=== PATIENT | female | born 1940 | race Caucasian/White ===

== ENCOUNTER 2020-09-11 00:15 | Inpatient (IN) | payer MEDICARE ==
[~2020-09-11] VITALS: Ht 165.1 cm; Wt 86.4 kg
[2020-09-11] MEDS ORDERED: Vitamin D2000 UNIT PO (00:36)
[2020-09-11] MEDS ORDERED: Aldactone50 MG PO (00:36)
[2020-09-11] MEDS ORDERED: XARELTO20 MG PO (00:36)
[2020-09-11] MEDS ORDERED: AMLO5 PO (00:37)
[2020-09-11] MEDS ORDERED: LANOXIN125 MCG PO (00:37)
[2020-09-11] MEDS ORDERED: PARO20 PO (00:37)
[2020-09-11] MEDS ORDERED: LOVA40 PO (00:37)
[2020-09-11] MEDS ORDERED: METO25ER PO (00:38)
[2020-09-11] MEDS ORDERED: Prinivil10 MG PO (00:38)
[2020-09-11] MEDS ORDERED: ALBU90OI INH (00:38)
[2020-09-11 00:48] LABS: BASOPHILS ABSOLUTE AUTO 0.06 K/mm3 (0.00-0.23); BASOPHILS PERCENT AUTO 1 % (0-2); EOSINOPHILS ABSOLUTE AUTO 0.02 K/mm3 (0.00-0.68); EOSINOPHILS PERCENT AUTO 0 % (0-6); Hematocrit 42.6 % (33.0-51.0); IMMATURE GRAN ABSOLUTE AUTO 0.03 K/mm3 (0.00-0.10); IMMATURE GRAN PERCENT AUTO 0 % (0-1); LYMPHOCYTES ABSOLUTE AUTO 2.42 K/mm3 (0.84-5.20); LYMPHOCYTES PERCENT AUTO 24 % (21-46); MONOCYTES ABSOLUTE AUTO 1.32 K/mm3 (0.16-1.47); MONOCYTES PERCENT AUTO 13 % (4-13); Mean Corpuscular HGB Conc 30.5 g/dL (31.5-36.5); Mean Corpuscular Volume 105 fL (80-100); Mean Platelet Volume 9.3 fL (9.1-12.4); NEUTROPHILS ABSOLUTE AUTO 6.25 K/mm3 (1.96-9.15); NEUTROPHILS PERCENT AUTO 62 % (41-73); Platelet Count 300 K/mm3 (150-400); RDW Coefficient Variation 14.7 % (11.7-14.2); RDW Standard Deviation 58.4 fL (35.1-46.3); Red Blood Cell Count 4.06 M/mm3 (3.80-5.20)
[2020-09-11 01:01] LABS: Alanine Aminotransfer (ALT/SGP 13 U/L (12-78); Albumin, Blood 3.4 g/dL (3.4-5.0); Albumin/Globulin Ratio 0.9 (0.8-1.8); Alk Phos 65 U/L (50-136); Anion Gap 6 mmol/L (6-16); Aspartate Aminotrans (AST/SGOT 10 U/L (12-37); Bilirubin, Total 0.7 mg/dL (0.1-1.0); Blood Urea Nitrogen 18 mg/dL (8-24); Bun/Creatinine Ratio 15.4 (12.0-20.0); CO2, Blood 28 mmol/L (21-32); Calcium, Blood 8.9 mg/dL (8.5-10.1); Chloride, Blood 108 mmol/L (98-108); Creatinine, Blood 1.17 mg/dL (0.40-1.00); Globulin, Blood 3.6 g/dL (2.2-4.0); Glomerular Filtration Rate 47 (60-); Glucose, Blood 109 mg/dL (70-99); Potassium, Blood 4.1 mmol/L (3.5-5.5); Sodium, Blood 142 mmol/L (136-145)
[2020-09-11 02:10] LABS: Troponin I <0.015 ng/mL (0.000-0.040)
[2020-09-11 04:21] LABS: Base Excess Venous 0.6 mmol/L; Bicarbonate Venous 24.7 mmol/L (24.0-30.0); PCO2 Venous 43.6 mmHg (38-42); PO2 Venous 148 mmHg (38-42); pH Blood Venous 7.38 (7.34-7.37)
--- NOTE | 2020-09-11 06:20 | NUR ---
SHIFT SUMMARY PT RESTED AFTER ADMISSION TO ROOM. ALERT AND ORIENTED - ABLE TO MAKE NEEDS KNOWN. TELE AFIB - NO NEW CHANGES, RATE CONTROLLED. ON 12L OXYMIZER - SATS AT ABOUT 88-90%. NO SIGNS OF SKIN ISSUES. PT USUALLY AMBULATES WITH WALKER AT HOME, BUT PT HAS BEEN DESATTING RAPIDLY WITH ANY ACTIVITY. PT ON BEDREST, USING BEDPAN FOR TIME BEING - CONTINENT, ABLE TO LET NURSING STAFF KNOW WHEN SHE HAS TO USE BATHROOM. SPEECH THERAPY TO SEE IN AM. NO C/O PAIN. VSS. CALL LIGHT WITHIN REACH, BED IN LOWEST POSITION. WILL CONTINUE TO MONITOR.
--- NOTE | 2020-09-11 17:52 | NUR ---
SHIFT NOTE PT HAS BEEN RESTING WELL IN BED T/O THE DAY. SOME SOB NOTED WITH COUGHING ATTACKS, BUT RECOVERS WELL. PT HAS REMAINED IN BED T/O THE DAY. DESATS WITH EXCESSIVE TALKING. PT WITH MODIFIED DIET, MEDS IN APPLESAUCE WHICH IS ALL TOLERATED WELL. NO NOSE BLEEDS NOTED DURING THIS SHIFT. PT IS A/O X4, ANSWERS QUSETIONS APPROPRIATELY
--- NOTE | 2020-09-11 19:35 | NUR ---
ASSUMED CARE RECEIVED BEDSIDE REPORT FROM NUSRAT ARREAGA; PT A&O; STATES SHE FEELS IMPROVED; VSS; AFIB NOTED ON TELE W/ HR 107; O2 SATS >90 ON 13L OXYMIZER; RT AT BEDSIDE FOR ASSESSMENT & BREETHING TX; NO DISTRESS NOTED; CALL LIGHT IN REACH; BED IN LOWEST POSITION.
--- NOTE | 2020-09-12 00:27 | NUR ---
UPDATE PT MEDICAL STATUS; PT EDUCATED ON TRANSFERING TO MED FLOOR; PT A&O; VSS; O2 SATS >90 ON 13L OXYMIZER; REPORT GIVEN TO NUSRAT GOMES; OFFERED TO CALL AND NOTIFY FAMILY, PT DENIED; PT TRANSPORTED IN WC W/ ALL PERSONAL BELONGINGS AND MEDICATIONS W/AID.
--- NOTE | 2020-09-12 00:30 | NUR ---
ASSUMED CARE OF THE PATIENT. SHE IS A TRANSFER FROM [facility], GOT REPORT FROM [facility]. PATIENT AOX3, SITTING UP IN BED. SOB WITH MOVEMENT. ON 14L OF OXIMIZER. ROD DRAWER GETTING HER SETTLED INTO THE ROOM.
--- NOTE | 2020-09-12 07:47 | NUR ---
SHIFT SUMMARY; PCU TRANSFER TO THE FLOOR. DYSPNEA WITH TRANSFER TO BED. ON 14L OXIMIZER, NORMALLY ON 2 LITERS AT HOME. ORTHOPNEA. LUNG SOUNDS VERY TIGHT WITH LITTLE TO NO AIR EXCHANGED. STARTED HER ON INSPIROMETER AND FLUTTER VALVE, PATIENT DEMENSTRATED BOTH CORRECTLY. COUGH IS MOIST AND MOVING SECREATIONS BUT SHE IS UNABLE TO GET IT FULLY OUT. WAS ABLE TO SLEEP FOR SHORT PERIOD OF TIME. THIS AM SATS 88% ON 14L. CALLED RT FOR BREATHING TREATMENT AND TURNED HER UP TO 15 LITERS. RT ARRIVED, WE DISCUSSED HOW SHE HAS A STUFFED NOSE WHICH MAY BE CAUSING A BLOCKAGE AND OXYGEN NOT GETTING THROUGH. GAVE HER SOME SALINE TO MOISTEN HER NOSE. WILL PROBALLY NEED FLONASE TO HELP. RT TURNED O2 DOWN TO 13 LITERS WITH SATS LOW 90S WHILE ON BREATHING TREATMENT. PATIENT STATES SHE FEELS FINE AT THIS TIME. REPORT GIVEN TO DAY SHIFT, CALL LIGHT IS IN REACH.
[2020-09-12 08:30] LABS: BASOPHILS ABSOLUTE AUTO 0.01 K/mm3 (0.00-0.23); BASOPHILS PERCENT AUTO 0 % (0-2); EOSINOPHILS PERCENT AUTO 0 % (0-6); Hematocrit 37.6 % (33.0-51.0); Hemoglobin 11.6 g/dL (11.5-16.0); IMMATURE GRAN ABSOLUTE AUTO 0.02 K/mm3 (0.00-0.10); IMMATURE GRAN PERCENT AUTO 0 % (0-1); LYMPHOCYTES PERCENT AUTO 19 % (21-46); MONOCYTES ABSOLUTE AUTO 1.06 K/mm3 (0.16-1.47); MONOCYTES PERCENT AUTO 11 % (4-13); Mean Corpuscular HGB 32.3 pg (26.0-34.0); Mean Corpuscular HGB Conc 30.9 g/dL (31.5-36.5); Mean Corpuscular Volume 105 fL (80-100); Mean Platelet Volume 9.3 fL (9.1-12.4); NEUTROPHILS ABSOLUTE AUTO 6.92 K/mm3 (1.96-9.15); NEUTROPHILS PERCENT AUTO 70 % (41-73); Platelet Count 255 K/mm3 (150-400); RDW Coefficient Variation 14.6 % (11.7-14.2); RDW Standard Deviation 57.2 fL (35.1-46.3); Red Blood Cell Count 3.59 M/mm3 (3.80-5.20); White Blood Cell Count 9.91 K/mm3 (4.00-11.30)
[2020-09-12 08:44] LABS: Bun/Creatinine Ratio 17.6 (12.0-20.0); Calcium, Blood 8.9 mg/dL (8.5-10.1); Creatinine, Blood 1.08 mg/dL (0.40-1.00); Potassium, Blood 4.2 mmol/L (3.5-5.5)
--- NOTE | 2020-09-12 18:55 | NUR ---
a+o, medicated as prescribed, no acute changes noted, sitting up watching tv, still at 10L working with rt, call light in reach, saline locked, bed in low position, will share bsr with noc nurse and pt
--- NOTE | 2020-09-13 04:58 | NUR ---
SUMMARY PT REMAINS ON HIGH FLOW O2. PT DOES BECOME SOB W/ EXERTION. PT RECOVERS QUICKLY W/ REST. PT HAS SLEPT OFF AND ON. PT HAD NO COMPLAINTS NOTED. PT CURRENTLY AWAKE AND RESTING COMFORTABLY. CALL LIGHT IN REACH.
[2020-09-13 05:33] LABS: Bun/Creatinine Ratio 19.5 (12.0-20.0); Calcium, Blood 8.8 mg/dL (8.5-10.1); Creatinine, Blood 1.18 mg/dL (0.40-1.00); Potassium, Blood 3.8 mmol/L (3.5-5.5)
[2020-09-13 09:01] LABS: Hematocrit 36.2 % (33.0-51.0); Hemoglobin 11.5 g/dL (11.5-16.0); Mean Corpuscular HGB 33.4 pg (26.0-34.0); Mean Corpuscular HGB Conc 31.8 g/dL (31.5-36.5); Mean Corpuscular Volume 105 fL (80-100); Mean Platelet Volume 9.7 fL (9.1-12.4); Platelet Count 241 K/mm3 (150-400); RDW Coefficient Variation 14.6 % (11.7-14.2); RDW Standard Deviation 57.3 fL (35.1-46.3); Red Blood Cell Count 3.44 M/mm3 (3.80-5.20); White Blood Cell Count 9.65 K/mm3 (4.00-11.30)
[2020-09-13 09:56] LABS: Digoxin (Lanoxin) 0.62 ug/mL (0.80-2.00)
--- NOTE | 2020-09-13 17:14 | NUR ---
SUMMARY PT SITTING UP IN THE CHAIR AT THE BEDSIDE, PT HAS BEEN PLEASANT AND COOPERTIVE WITH CARE, UP TO COMMODE AND CHAIR INDEPENDENTLY, PT WORKED WITH THERAPY TODAY, ABLE TO TITRATE O2 DOWN TO 10L FROM 14L TODAY, FAMILY CALLED TO CHECK ON THE PT, VSS, NO ACUTE CHANGES, WILL CONT TO MONITOR
--- NOTE | 2020-09-14 05:24 | NUR ---
SHIFT SUMMARY- PT. A&O, PLEASANT AND COOPERATIVE WITH CARE. NO COMPLAINTS DURING THE NIGHT. PT. SLEPT ON/FF LAST NIGHT, TRANSFERRED BACK AND FORTH FROM BED TO CHAIR INDEPENDENTLY. ON 10L NC, VSS. PT. HAS OCCASIONAL HACKING COUGH, DENIED ANY PAIN OR DISCOMFORT. CALL LIGHT WITHIN REACH AND SIDE RAILS UX2. WILL CONT TO MONITOR.
[2020-09-14 06:45] LABS: Digoxin (Lanoxin) 1.51 ug/mL (0.80-2.00)
--- NOTE | 2020-09-14 18:28 | NUR ---
SHIFT SUMMARY PATIENT IS PLEASANT, ALERT AND ORIENTED. SHE IS INDEPENDENT IN THE ROOM. STILL ON 10L O2 VIA HIGH FLOW NASAL CANNULA. SHE DENIES ANY CHEST PAIN OR PRESSURE. SHE STATES THAT HER BREATHING IS STILL DOING WELL. SHE HAD FAMILY IN TO SEE HER TODAY AND DENIED ANY CONCERNS. IV STILL RUNNING WELL IN HER RIGHT HAND. SHE IS SALINE LOCKED.
[2020-09-15 04:54] LABS: PCO2 Arterial 61.3 mmHg (35-45); PO2 Arterial 66.2 mmHg (80-100); pH Blood Arterial 7.41 (7.35-7.45)
[2020-09-15 05:25] LABS: Albumin, Blood 3.4 g/dL (3.4-5.0); Anion Gap 3 mmol/L (6-16); Blood Urea Nitrogen 25 mg/dL (8-24); Bun/Creatinine Ratio 22.5 (12.0-20.0); CO2, Blood 38 mmol/L (21-32); Calcium, Blood 9.2 mg/dL (8.5-10.1); Chloride, Blood 96 mmol/L (98-108); Creatinine, Blood 1.11 mg/dL (0.40-1.00); Glomerular Filtration Rate 50 (60-); Glucose, Blood 102 mg/dL (70-99); Phosphorus, Blood 3.5 mg/dL (2.5-4.9); Potassium, Blood 3.9 mmol/L (3.5-5.5); Sodium, Blood 137 mmol/L (136-145)
--- NOTE | 2020-09-15 06:11 | NUR ---
SHIFT SUMMARY- PT. PLEASANT AND COOPERATIVE WITH CARE. SLEPT ON/OFF DURING THE NIGHT, ON 10L NC. C/O HEADACHE EARLY IN THE AM, MEDICATED PER EMAR WITH GOOD EFFECT. PT. UP IN CHAIR THE REST OF THE AM, NO OTHER COMPLAINTS. VSS. CALL LIGHT WITHIN REACH, WILL CONT TO MONITOR.
--- NOTE | 2020-09-15 18:25 | NUR ---
NO ACUTE EVENTS THIS SHIFT, VSS. PATIENT ALERT AND ORIENTED, PLEASANT AND COOPERATIVE WITH CARE. PATIENT ABLE TO AMBULATE INDEPENDENTLY TO BEDSIDE COMMODE, IV LASIX CONTINUED AND PATIENT IS DIURESING WELL. O2 ABLE TO BE TITRATED DOWN TO 8 L VIA NASAL CANNULA, PATIENT APPEARS TO BE TOLERATING ADJUSTMENT.
--- NOTE | 2020-09-16 04:55 | NUR ---
SHIFT SUMMARY- PT. HAD NO ACUTE CHANGES DURING THE NIGHT. TITRATED DOWN TO 8L NC, TOLERATING WELL VSS. DENIED ANY PAIN OR DISCOMFORT LAST NIGHT. SLEPT ON/OFF, NO APPARENT DISTRESS NOTED. CALL LIGHT WITHIN REACH AND SIDE RAILS UPX2. WILL CONT TO MONITOR.
[2020-09-16 05:25] LABS: BASOPHILS ABSOLUTE AUTO 0.06 K/mm3 (0.00-0.23); BASOPHILS PERCENT AUTO 1 % (0-2); EOSINOPHILS ABSOLUTE AUTO 0.05 K/mm3 (0.00-0.68); EOSINOPHILS PERCENT AUTO 1 % (0-6); Hematocrit 40.1 % (33.0-51.0); Hemoglobin 12.7 g/dL (11.5-16.0); IMMATURE GRAN ABSOLUTE AUTO 0.01 K/mm3 (0.00-0.10); IMMATURE GRAN PERCENT AUTO 0 % (0-1); LYMPHOCYTES ABSOLUTE AUTO 1.82 K/mm3 (0.84-5.20); LYMPHOCYTES PERCENT AUTO 21 % (21-46); MONOCYTES ABSOLUTE AUTO 1.12 K/mm3 (0.16-1.47); MONOCYTES PERCENT AUTO 13 % (4-13); Mean Corpuscular HGB 32.2 pg (26.0-34.0); Mean Corpuscular HGB Conc 31.7 g/dL (31.5-36.5); Mean Corpuscular Volume 102 fL (80-100); Mean Platelet Volume 9.5 fL (9.1-12.4); NEUTROPHILS ABSOLUTE AUTO 5.59 K/mm3 (1.96-9.15); NEUTROPHILS PERCENT AUTO 65 % (41-73); Platelet Count 243 K/mm3 (150-400); RDW Coefficient Variation 13.6 % (11.7-14.2); RDW Standard Deviation 51.7 fL (35.1-46.3); Red Blood Cell Count 3.94 M/mm3 (3.80-5.20); White Blood Cell Count 8.65 K/mm3 (4.00-11.30)
[2020-09-16 05:54] LABS: Anion Gap 4 mmol/L (6-16); Blood Urea Nitrogen 25 mg/dL (8-24); CO2, Blood 39 mmol/L (21-32); Calcium, Blood 9.4 mg/dL (8.5-10.1); Chloride, Blood 92 mmol/L (98-108); Creatinine, Blood 0.89 mg/dL (0.40-1.00); Glomerular Filtration Rate >60 (60-); Glucose, Blood 93 mg/dL (70-99); Potassium, Blood 3.8 mmol/L (3.5-5.5); Sodium, Blood 135 mmol/L (136-145)
--- NOTE | 2020-09-16 08:11 | NUR ---
PT BP/PHYSICIAN NOTIFICATION THIS RN SPOKE WITH DR. LAMBERT AT APPROXIMATELY 0810 ABOUT PT BP OF 91/53 THIS AM. THIS RN RECIEVED ORDERS TO HOLD AM LASIX AND METOPROLOL DOSES, BUT CONTINUE TO GIVE THE DIGOXIN. THIS RN WILL TAKE PT WEIGHT WELL. THIS RN WILL CONTINUE TO MONITOR PT STATUS.
--- NOTE | 2020-09-16 17:03 | NUR ---
PT BP/PHYSICIAN NOTIFICATION THIS RN CALLED DR. LAMBERT AT APPROXIMATELY 1700 ABOUT PT BP OF 95/52 THIS EVENING. THIS RN CLARIFIED IF PT'S 1800 LASIX DOSE SHOULD BE GIVEN. THIS RN RECIEVED ORDERS TO HOLD THE LASIX IF SBP IS BELOW 100, BUT IS OKAY TO GIVE IF SBP IS ABOVE 100. THIS RN WILL RECHECK PT'S BP AND MONITOR STATUS.
--- NOTE | 2020-09-16 17:15 | NUR ---
SHIFT SUMMARY PT IS AOX4 AND PLEASANT. PT DENIES PAIN, N/V. PT C/O SOB ON EXERTION. PT CURRENTLY ON 4 L O2 VIA NC WITH SATURATIONS IN THE 92-94%. PT WORKED WITH PT/OT TODAY AND EXHIBITED SOB ON EXERTION, BUT DID WELL. PLAN IS TO CONTINUE TITRATING O2 TO BASEINE WHICH IS 2 L VIA NC. PT ENCOURAGED TO USE INCENTIVE SPIROMETER FREQUENTLY THROUGHOUT SHIFT. PT HAS GOOD APPETITE TODAY. PT IS IN BED, CALL LIGHT IN REACH, BED IN LOW POSITION.
[2020-09-17 05:30] LABS: BASOPHILS ABSOLUTE AUTO 0.06 K/mm3 (0.00-0.23); BASOPHILS PERCENT AUTO 1 % (0-2); EOSINOPHILS ABSOLUTE AUTO 0.06 K/mm3 (0.00-0.68); EOSINOPHILS PERCENT AUTO 1 % (0-6); Hematocrit 38.8 % (33.0-51.0); Hemoglobin 12.3 g/dL (11.5-16.0); IMMATURE GRAN ABSOLUTE AUTO 0.02 K/mm3 (0.00-0.10); IMMATURE GRAN PERCENT AUTO 0 % (0-1); LYMPHOCYTES ABSOLUTE AUTO 1.86 K/mm3 (0.84-5.20); LYMPHOCYTES PERCENT AUTO 22 % (21-46); MONOCYTES ABSOLUTE AUTO 1.15 K/mm3 (0.16-1.47); MONOCYTES PERCENT AUTO 14 % (4-13); Mean Corpuscular HGB 32.1 pg (26.0-34.0); Mean Corpuscular HGB Conc 31.7 g/dL (31.5-36.5); Mean Corpuscular Volume 101 fL (80-100); Mean Platelet Volume 9.7 fL (9.1-12.4); NEUTROPHILS ABSOLUTE AUTO 5.22 K/mm3 (1.96-9.15); NEUTROPHILS PERCENT AUTO 63 % (41-73); Platelet Count 246 K/mm3 (150-400); RDW Coefficient Variation 13.9 % (11.7-14.2); RDW Standard Deviation 52.4 fL (35.1-46.3); Red Blood Cell Count 3.83 M/mm3 (3.80-5.20); White Blood Cell Count 8.37 K/mm3 (4.00-11.30)
--- NOTE | 2020-09-17 05:54 | NUR ---
SHIFT SUMMARY AOX4. VSS. SPO2 @90% ON 4L O2. E/U RESPIRATIONS. PT DENIES DYSPNEA @REST. DIM LUNGS SOUNDS IN BASES. HAS OCCASIONAL WET/CONGESTED SOUNDING COUGH, REPORTS ONLY SCANT AMOUNT YELLOW SPUTUM PRODUCTION. TRACE EDEMA BLE. RECIEVING DIURETICS, HAD 2700ML URINE OUTPUT THIS SHIFT. IND IN ROOM. CALL LIGHT IN REACH. WCTM.
[2020-09-17 06:01] LABS: Anion Gap 3 mmol/L (6-16); Blood Urea Nitrogen 24 mg/dL (8-24); Bun/Creatinine Ratio 25.2 (12.0-20.0); CO2, Blood 39 mmol/L (21-32); Calcium, Blood 9.2 mg/dL (8.5-10.1); Chloride, Blood 94 mmol/L (98-108); Creatinine, Blood 0.95 mg/dL (0.40-1.00); Glomerular Filtration Rate >60 (60-); Glucose, Blood 102 mg/dL (70-99); Potassium, Blood 3.7 mmol/L (3.5-5.5); Sodium, Blood 136 mmol/L (136-145)
--- NOTE | 2020-09-17 17:51 | NUR ---
SHIFT SUMMARY: NO ACUTE EVENTS. O2 @ 4 L/MIN NC WITH SATS 88-90%, LUNGS COARSE, COSMETIC MAKER COUGH. STATED SHE FEELS MUCH BETTER, WAS HOPING TO GO HOME TODAY. GETTING UP TO BSC WITH SBA. GOOD APPETITE. HAD CT PE STUDY, TOLERATED WELL. GAVE UPDATE TO GRANDDAUGHTER RAFI BY PHONE TODAY.
--- NOTE | 2020-09-17 23:44 | NUR ---
FAMILY COMMUNICATION AROUND 2229 I TALKED c GRANDDAUGHTER PURVI & INFORMED HER ON PTS INCREASED O2 NEEDS c AMBULATION WHICH CAUSED PT TO NOT GET DC'D TODAY. PURVI INFORMED ME PT WILL "HOLD HER BREATH WHEN SHE IS IN PAIN WHILE WALKING & NOT TELL ANYONE IF SHE IS HURTING." PURVI ALSO STATED THIS CAN CAUSE PT TO BE SOB & SOMETIMES IT TAKES HER AWHILE FOR HER BREATHING TO RECOVER. INFORMED FAMILY MEMBER I WILL PASS INFO ON TO DAY SHIFT NURSE FOR IT MAY HAVE BEEN THE CAUSE TO WHY PTS O2 NEEDS INCREASED c AMBULATION, & WE MAY NEED TO MEDICATE FOR PAIN BEFORE AMBULATION TO HELP O2 NEEDS. PURVI ALSO ASKED WHY PT HASN'T SEEN STEAM FITTER SUPERVISOR SINCE [facility] INFORMED HER THATS WHY THEY WERE TRANSFERRING PT & ASKED IF STAFF COULD EDUCATE ON HOW TO USE A OXIMETER @DC & UPDATE HER TOMORROW 09/18/20 ON PLANS FOR PT. PURVI [phone]. WILL PASS ALL THIS INFO TO ONCOMING NURSE & CONT TO MONITOR PT.
[2020-09-18 05:29] LABS: Albumin, Blood 3.3 g/dL (3.4-5.0); Anion Gap 5 mmol/L (6-16); Blood Urea Nitrogen 25 mg/dL (8-24); CO2, Blood 38 mmol/L (21-32); Chloride, Blood 93 mmol/L (98-108); Creatinine, Blood 0.93 mg/dL (0.40-1.00); Glomerular Filtration Rate >60 (60-); Glucose, Blood 111 mg/dL (70-99); Phosphorus, Blood 3.2 mg/dL (2.5-4.9); Potassium, Blood 3.8 mmol/L (3.5-5.5); Sodium, Blood 136 mmol/L (136-145)
--- NOTE | 2020-09-18 05:56 | NUR ---
SHIFT SUMMARY NO ACUTE CHANGES THIS SHIFT. AOX4. VSS. SPO2 @90% ON 4.5L O2, PT DENIES DYSPNEA @REST & STATED SHE DID NOT FEEL SOB EARLIER IN DAY SHIFT YESTERDAY WHEN THEY HAD TO INCREASE O2 TO 8 & 10L, PT STATES HER BREATHING "IS GOOD" & WANTS TO GO HOME. E/U RESPIRATIONS. LUNGS HAVE FINE CRACKLES IN BASES. READ FAMILY COMMUNICATION NOTE. PT DENIES ANY PAIN OR N/V. IND TO BSC. RECIEVING LASIX BID, HAD 2200ML URINE OUTPUT THIS SHIFT. CALL LIGHT IN REACH. WILL MONITOR.
--- NOTE | 2020-09-18 17:47 | NUR ---
SHIFT SUMMARY PT HAS HAD NO COMPLAINTS THIS SHIFT. PT IS ON 4L OXYGEN VIA NC. WORKED WITH PT AND AMBULATED IN HALLS. NO ACUTE CHANGES THIS SHIFT. PLANS FOR POSSIBLE DISCHARGE TOMORROW. CALL LIGHT IN REACH. WILL CONTINUE TO MONITOR AND REPORT TO ONCOMING RN.
--- NOTE | 2020-09-19 04:10 | NUR ---
SHIFT SUMMARY ASSUMED CARE OF PT AT 1900. PT IS A/OX4. HEART SOUNDS REGULAR, LUNG SOUNDS HAVE FINE CRACKLES AT THE BASES. PT WAS TURNED DOWN FROM 4L TO 3L AND SATURATIONS ABOVE 90%. PT HAS DYSPNEA WITH ACTIVITY. PT SBA TO BATHROOM. DAVID CALLED AND REQUESTED TO BE PRESENT ON DISCHARGE. NO ACUTE EVENTS DURING THE NIGHT. CALL LIGHT IN REACH, BED IN LOWEST POSTION.
[2020-09-19 05:11] LABS: BASOPHILS ABSOLUTE AUTO 0.07 K/mm3 (0.00-0.23); BASOPHILS PERCENT AUTO 1 % (0-2); EOSINOPHILS ABSOLUTE AUTO 0.07 K/mm3 (0.00-0.68); EOSINOPHILS PERCENT AUTO 1 % (0-6); Hematocrit 40.9 % (33.0-51.0); Hemoglobin 13.1 g/dL (11.5-16.0); IMMATURE GRAN ABSOLUTE AUTO 0.04 K/mm3 (0.00-0.10); IMMATURE GRAN PERCENT AUTO 1 % (0-1); LYMPHOCYTES ABSOLUTE AUTO 2.28 K/mm3 (0.84-5.20); LYMPHOCYTES PERCENT AUTO 26 % (21-46); MONOCYTES ABSOLUTE AUTO 1.17 K/mm3 (0.16-1.47); MONOCYTES PERCENT AUTO 13 % (4-13); Mean Corpuscular HGB 32.2 pg (26.0-34.0); Mean Corpuscular Volume 101 fL (80-100); Mean Platelet Volume 9.5 fL (9.1-12.4); NEUTROPHILS ABSOLUTE AUTO 5.22 K/mm3 (1.96-9.15); NEUTROPHILS PERCENT AUTO 59 % (41-73); Platelet Count 292 K/mm3 (150-400); RDW Coefficient Variation 13.6 % (11.7-14.2); RDW Standard Deviation 50.9 fL (35.1-46.3); Red Blood Cell Count 4.07 M/mm3 (3.80-5.20); White Blood Cell Count 8.85 K/mm3 (4.00-11.30)
[2020-09-19 05:39] LABS: Anion Gap 4 mmol/L (6-16); Blood Urea Nitrogen 26 mg/dL (8-24); Bun/Creatinine Ratio 28.8 (12.0-20.0); CO2, Blood 38 mmol/L (21-32); Calcium, Blood 9.3 mg/dL (8.5-10.1); Chloride, Blood 94 mmol/L (98-108); Glomerular Filtration Rate >60 (60-); Glucose, Blood 107 mg/dL (70-99); Potassium, Blood 3.7 mmol/L (3.5-5.5); Sodium, Blood 136 mmol/L (136-145)
--- NOTE | 2020-09-19 08:41 | NUR ---
PT GAVE THIS STUDENT RN PERMISSION TO CARE FOR HER TODAY, 09/19/20.
--- NOTE | 2020-09-19 11:17 | NUR ---
STARTED NEW HOME O2 EVAL RA/81% AT REST, 1L/84%, 2L/89%, 3L AT REST/93%, BEFORE TEST COULD RESUME RN NOTIFIED US THAT PLANS HAVE CHANGED AND WE WOULD HOLD TEST FOR ANOTHER TIME. WILL HOLD TEST AT THIS TIME.
--- NOTE | 2020-09-19 16:41 | NUR ---
PT IS A/OX3, PLEASANT AND COOPERATIVE, THE PT IS UP WITH MINIMAL ASSIST, THE PT REPORTS THAT SHE IS BREATHING EASIER TODAY, PLAN WAS FOR THE PT TO BE DC'D HOWEVER DISCHARGE WAS HELD UNTIL THE PT COULD BE CONSULTED BY PULMONOLOGY DR. GAMEZ, PT MOST LIKLEY WILL BE DC'D TOMORROW, CALL LIGHT IN REACH, WILL CONTINUE TO MONITOR AND ASSESS FOR CHANGES
--- NOTE | 2020-09-20 04:10 | NUR ---
SHIFT SUMMARY ASSUMED CARE OF PT AT 1900. PT IS A/OX4. HEART SOUNDS REGULAR, LUNG SOUNDS HAVE EXP WHEEZE IN L LUNG BASE AND IS TIGHT T/O. PT WAS ON 3L NC T/O THE NIGHT. PT INDEPENDENT TO BATHROOM. PT HAD A HARD TIME SLEEPING THIS PM. CALL LIGHT IN REACH, BED IN LOWEST POSTION.
[2020-09-20] MEDS ORDERED: AMOCLA875 PO (09:25)
[2020-09-20] MEDS ORDERED: AZIT500 PO (09:26)
[2020-09-20] MEDS ORDERED: FURO40 PO (09:30)
[2020-09-20] MEDS ORDERED: Nicoderm Cq1 EAC1 TOP (09:31)
--- NOTE | 2020-09-20 13:29 | NUR ---
SUMMARY/DISCHARGE PT DISCHARGED TO HOME WITH HER GRAND DAUGHTER, DISCHARGE INSTRUCTIONS GIVEN TO THE PT AND GRAND DAUGHTER BOTH, THEY BOTH VERBALIZED UNDERSTANDING OF INSTRUCTIONS REGARDING MEDS AND FOLLOW UP, PT TAKEN OUT SAFELY VIA WHEELCHAIR
== END 2020-09-20 12:31 | disposition home health service (06) | DRG 871 ==
LOC: ER 00:15 → PCU 01:51 → MEDS 01:51 → PCU 03:35 → MEDS 09-12 00:26 → ENPENDDIS 09-20 08:26 → MEDS 09-20 12:31
PROVIDERS: Emergency Medicine; Family Medicine; Internal Medicine; ADMIT Family Medicine
DX: A41.9 Sepsis, unspecified organism (principal); I50.33 Acute on chronic diastolic (congestive) heart failure; J18.9 Pneumonia, unspecified organism; J96.01 Acute respiratory failure with hypoxia; I48.20 Chronic atrial fibrillation, unspecified; N17.9 Acute kidney failure, unspecified; J43.9 Emphysema, unspecified; Z20.822 Contact with and (suspected) exposure to COVID-19; I27.20 Pulmonary hypertension, unspecified; G47.33 Obstructive sleep apnea (adult) (pediatric); I35.0 Nonrheumatic aortic (valve) stenosis; F17.210 Nicotine dependence, cigarettes, uncomplicated; N18.30 Chronic kidney disease, stage 3 unspecified; Z99.81 Dependence on supplemental oxygen
CPT/HCPCS: 36415; 36600; 71045; 71046; 71260; 80048; 80053; 80069; 80162; 82803; 83605; 83880; 84145; 84484; 85025; 85027; 87040; 92526; 92610; 93005; 93010; 93306; 94640; 94667; 94668; 94760; 94761; 96374; 97110; 97116; 97162; 97166; 97530; 97535; 99285-25; A9270; J0456; J0696; J1100; J1160; J1940; J1956; J7050; Q9967